=== PATIENT | female | born 1955 | race Caucasian/White ===

== ENCOUNTER 2020-05-31 13:28 | Outpatient (CLI) | payer OTHER, SELFPAY | END 2020-05-31 14:00 | disposition home or self-care (01) | LOC: SLB 13:28 → EDSTATUS 06-07 09:00 | PROVIDERS: ATTEND Obstetrics & Gynecology | DX: Z01.812 Encounter for preprocedural laboratory examination (principal); Z20.828 Contact with and (suspected) exposure to other viral communicable diseases; N95.0 Postmenopausal bleeding | CPT/HCPCS: U0003 ==

== ENCOUNTER 2021-08-22 05:35 | Day surgery (SDC) | payer OTHER, MEDICAID, SELFPAY ==
[~2021-08-22] VITALS: Ht 167.6 cm; Wt 72.1 kg
[2021-08-22] MEDS ORDERED: ONDANSETRON HCL 4 MG/2 ML VIAL IVP PRN (08:30)
[2021-08-22] MEDS ORDERED: HYDROmorphone 2 MG/ML VIAL IVP PRN (08:30)
[2021-08-22] MEDS ORDERED: HYDROmorphone 1 MG/ML INJ. CARTRIDGE IVP PRN ×2 (08:30)
[2021-08-22] MEDS ORDERED: PROPOFOL 200MG/ 20ML VIAL (DIPRIVAN) IV ONE (08:54)
[2021-08-22] MEDS ORDERED: LR 1,000 ML IV.SOLN IV ONE (08:54)
[2021-08-22] MEDS ORDERED: NS IRRIG SOLN 5000 ML IR ONE (08:54)
[2021-08-22] MEDS ORDERED: KETOROLAC TROMETHAMINE 30 MG VIAL ONE (08:54)
[2021-08-22] MEDS ORDERED: ONDANSETRON HCL 4 MG/2 ML VIAL ONE ×2 (08:54→09:43)
[2021-08-22] MEDS ORDERED: fentaNYL CITRATE/PF 100 MCG/2 ML AMP ONE (08:54)
[2021-08-22] MEDS ORDERED: DEXAMETHASONE SOD PHOSPHATE 4 MG/ML VIAL ONE (08:54)
[2021-08-22] MEDS ORDERED: NS 1000 ML IV.SOLN IV ONE (08:54)
[2021-08-22] MEDS ORDERED: NS IRRIG SOLN 1000 ML IR ONE (08:54)
[2021-08-22] MEDS ORDERED: DESFLURANE 15 MIN GAS INH ONE (08:54)
[2021-08-22 10:13] VITALS: BP_SYST 115
== END 2021-08-22 11:45 | disposition home or self-care (01) ==
LOC: SMU 05:35 → SDS 05:35
PROVIDERS: ATTEND Obstetrics & Gynecology
DX: N95.0 Postmenopausal bleeding (principal); N84.0 Polyp of corpus uteri; I10 Essential (primary) hypertension; E11.9 Type 2 diabetes mellitus without complications; Z20.822 Contact with and (suspected) exposure to COVID-19; Z79.899 Other long term (current) drug therapy
CPT/HCPCS: 36415 ×2; 58558; 71046; 82962; 86886; 86900; 86901; 87426; 88305; C1819; J1100; J1885; J2405; J2704; J3010; J7030; J7120; U0003

== ENCOUNTER 2021-09-17 09:02 | Emergency (ER) | payer OTHER, MEDICAID ==
[~2021-09-17] VITALS: Ht 167.6 cm; Wt 63.5 kg
[2021-09-17 09:40] VITALS: BP_SYST 114
--- NOTE | 2021-09-17 09:40 | NUR ---
Pt. bib daughter with c/o heavy vaginal bleeding, states had fibroid removal surgery and DNC 3 weeks agos and for the past 3 days vaginal bleeding with increase flow last night and currently going through more than 1 pad q1H, does c/o cramping 5/10 more so on left side
--- NOTE | 2021-09-17 09:40 | NUR ---
Patient to ER bed 2 to gown for evaluation. Side rails up. Assumed care.
--- NOTE | 2021-09-17 09:45 | NUR ---
ER at bedside examining patient.
[2021-09-17 10:08] LABS: BASOPHILS % (AUTO) 0.3 % (0.0-2.0); EOSINOPHILS % (AUTO) 0.2 % (0.0-4.0); HEMOGLOBIN 15.4 g/dL (12.0-16.0); LYMPHOCYTES # (AUTO) 1.4 K/uL (1.0-5.5); LYMPHOCYTES % (AUTO) 14.4 % (20.5-51.5); MEAN CORPUSCULAR HEMOGLOBIN 29 pg (27-31); MEAN CORPUSCULAR HGB CONC 33 % (32-36); MEAN CORPUSCULAR VOLUME 90 fL (79.0-98.0); MONOCYTES # (AUTO) 0.6 K/uL (0.0-1.0); MONOCYTES % (AUTO) 5.6 % (1.7-9.3); NEUTROPHILS # (AUTO) 7.9 K/uL (1.8-7.7); NEUTROPHILS % (AUTO) 79.5 % (40.0-70.0); PLATELET COUNT (AUTO) 159 K/uL (130-430); RED BLOOD CELL COUNT(AUTO) 5.24 MIL/uL (4.2-6.2); RED CELL DISTRIBUTION WIDTH 14.6 % (9.0-15.0)
[2021-09-17 10:12] LABS: CALCIUM 8.6 mg/dL (8.4-11.0); CREATININE 1.1 mg/dL (0.55-1.30); POTASSIUM 4.1 mmol/L (3.5-5.1)
--- NOTE | 2021-09-17 11:07 | NUR ---
Patient given written and verbal discharge instructions and verbalizes understanding. ER discussed with patient the results and treatment provided. Patient in stable condition. ID arm band removed. Rx of given. Patient educated on pain management and to follow up with PMD. Pain Scale 0. Opportunity for questions provided and answered.
== END 2021-09-17 11:06 | disposition home or self-care (01) ==
LOC: SED 09:02
DX: N93.8 Other specified abnormal uterine and vaginal bleeding (principal)
CPT/HCPCS: 36415; 80048; 81002; 85025; 99284

== ENCOUNTER 2021-11-12 05:25 | Day surgery (SDC) | payer OTHER, MEDICAID ==
[~2021-11-12] VITALS: Ht 167.6 cm; Wt 68.5 kg
[2021-11-12] MEDS ORDERED: BUPIVACAINE LIPOSOME/PF 266 MG/20 ML VIAL INFIL ONE (06:48)
[2021-11-12] MEDS ORDERED: HYDROmorphone 1 MG/ML INJ. CARTRIDGE IM PRN (08:00)
[2021-11-12] MEDS ORDERED: SIMETHICONE 80 MG TAB.CHEW PO PRN (08:00)
[2021-11-12] MEDS ORDERED: OXYCODONE/ACETAMINOPHEN 5-325 TABLET PO PRN ×2 (08:00)
[2021-11-12] MEDS ORDERED: ONDANSETRON HCL 4 MG/2 ML VIAL IVP PRN ×2 (08:00→08:45)
[2021-11-12] MEDS ORDERED: KETOROLAC TROMETHAMINE 30 MG VIAL IVP PRN ×2 (08:00→08:45)
[2021-11-12] MEDS ORDERED: IBUPROFEN 800 MG TABLET PO PRN (08:00)
[2021-11-12] MEDS ORDERED: LR 1,000 ML IV SCH ×2 (08:00→08:45)
[2021-11-12] MEDS ORDERED: MEPERIDINE HCL/PF 25 MG/ML DISP.SYRIN IVP PRN (08:45)
[2021-11-12] MEDS ORDERED: HYDROmorphone 1 MG/ML INJ. CARTRIDGE IVP PRN (08:45)
[2021-11-12] MEDS ORDERED: METOCLOPRAMIDE HCL 10 MG/2 ML VIAL IVP PRN (08:45)
[2021-11-12] MEDS ORDERED: DOCUSATE SODIUM 100 MG CAPSULE PO SCH (09:00)
[2021-11-12] MEDS ORDERED: SUCCINYLCHOLINE CHLORIDE 20 MG/ML(QUELICIN) ONE (09:50)
[2021-11-12] MEDS ORDERED: DEXAMETHASONE SOD PHOSPHATE 4 MG/ML VIAL ONE (09:50)
[2021-11-12] MEDS ORDERED: SUGAMMADEX SODIUM 200 MG/2 ML VIAL IV ONE (09:50)
[2021-11-12] MEDS ORDERED: NS 1000 ML IV.SOLN IV ONE (09:50)
[2021-11-12] MEDS ORDERED: SEVOFLURANE 15 MIN GAS INH ONE (09:50)
[2021-11-12] MEDS ORDERED: NS IRRIG SOLN 1000 ML IR ONE (09:50)
[2021-11-12] MEDS ORDERED: ROCURONIUM BROMIDE 10 MG/ML (ZEMURON) ONE (09:50)
[2021-11-12] MEDS ORDERED: METOCLOPRAMIDE HCL 10 MG/2 ML VIAL ONE (09:50)
[2021-11-12] MEDS ORDERED: fentaNYL CITRATE/PF 100 MCG/2 ML AMP ONE (09:50)
[2021-11-12] MEDS ORDERED: LR 1,000 ML IV.SOLN IV ONE (09:50)
[2021-11-12] MEDS ORDERED: PROPOFOL 200MG/ 20ML VIAL (DIPRIVAN) IV ONE (09:50)
[2021-11-12] MEDS ORDERED: MEPERIDINE 100 MG INJ. 100 MG/ML VIAL ONE (09:50)
[2021-11-12] MEDS ORDERED: CEFAZOLIN 1 GM IVPB PREMIX 50 ML IV ONE (09:50)
[2021-11-12] MEDS ORDERED: BUPIVACAINE /EPINEPHRINE/PF 0.25% 30 ML VIAL INJ ONE (09:50)
[2021-11-12] MEDS ORDERED: KETOROLAC TROMETHAMINE 30 MG VIAL ONE (10:11)
[2021-11-12] MEDS ORDERED: INSULIN REGULAR, HUMAN 100 UNITS/ML, 10 ML VIAL (humuLIN R) ONE (10:40)
[2021-11-12] MEDS ORDERED: INSULIN REGULAR, HUMAN 100 UNITS/ML, 10 ML VIAL SUBCUT ONE (10:45)
[2021-11-12 12:27] VITALS: BP_SYST 138
== END 2021-11-12 14:50 | disposition home or self-care (01) ==
LOC: SMU 05:25 → SDS 05:25
PROVIDERS: ATTEND Obstetrics & Gynecology
DX: N95.0 Postmenopausal bleeding (principal); N85.00 Endometrial hyperplasia, unspecified; I10 Essential (primary) hypertension; E11.9 Type 2 diabetes mellitus without complications; E78.5 Hyperlipidemia, unspecified; Z79.899 Other long term (current) drug therapy; Z20.822 Contact with and (suspected) exposure to COVID-19
CPT/HCPCS: 36415 ×3; 58571; 71046; 82948; 82962; 86886; 86900; 86901; 87426; 87635; 88307; 88341; 88342; 88361; C1727; J0330; J0690; J1100; J1815; J1885; J2175; J2704; J2765; J3010; J3490 ×2; J7030; J7120; U0003; C9290; E0190